=== PATIENT | male | born 1940 | race Caucasian/White ===

== ENCOUNTER 2020-07-26 11:45 | Inpatient (IN) | payer OTHER ==
[~2020-07-26] VITALS: Ht 165.1 cm; Wt 50.8 kg
[2020-07-28] MEDS ORDERED: LOSARTAN POTAS100 MG (08:06)
[2020-07-28] MEDS ORDERED: LISINOPRIL5 MG (08:06)
[2020-07-28] MEDS ORDERED: ATENOLOL50 MG (08:06)
[2020-07-28] MEDS ORDERED: GLIMEPIRIDE2 M1 (08:06)
[2020-07-28] MEDS ORDERED: METFORMIN HCL500 M4 (08:07)
== END 2020-08-05 11:49 | disposition home or self-care (01) | DRG 177 ==
LOC: ER 11:45 → MEDJ 18:46 → MEDI 07-29 15:18 → MEDJ 07-29 21:02
PROVIDERS: ADMIT Internal Medicine Cardiovascular Disease; ATTEND Internal Medicine Cardiovascular Disease
PROC: 8E0ZXY6 Isolation (ICD-10-PCS; principal; 2020-07-26)
PROC: BB24ZZZ Computerized Tomography (CT Scan) of Bilateral Lungs (ICD-10-PCS; 2020-07-26)
PROC: 4A033R1 Measurement of Arterial Saturation, Peripheral, Percutaneous Approach (ICD-10-PCS; 2020-07-26)
PROC: 4A12X4Z Monitoring of Cardiac Electrical Activity, External Approach (ICD-10-PCS; 2020-08-01)
DX: U07.1 COVID-19 (principal); J12.89 Other viral pneumonia; E11.9 Type 2 diabetes mellitus without complications; I10 Essential (primary) hypertension; R09.02 Hypoxemia; I48.91 Unspecified atrial fibrillation; R50.9 Fever, unspecified